=== PATIENT | male | born 1980 | race Caucasian/White ===

== ENCOUNTER 2018-05-15 11:35 | Emergency (ER) | payer MEDICAID ==
[2018-05-15] MEDS ORDERED: AMOX-559 PO (11:51)
--- NOTE | 2018-05-15 12:06 | ER Report ---
History and Physical Time Seen By MD: 12:06 Hx. of Stated Complaint: "I have cancer and no one will help." Per pt, dx'd with AML 2016, now relapsed, can't get an appt at [facility] for another 3 weeks. C/o sore throat, hemorrhoid. HPI/ROS This is a 37-year-old diabetic male who presented to the cancer center stating he needed help for his diagnosed AML. The patient was diagnosed with AML initially in 2015, and underwent chemotherapy treatment. He was lost to follow- up. In April 2018 he had multiple teeth pulled by a local dentist in [place]. After having his teeth pulled he became ill and sought care from his primary care physician. He was noted to be pancytopenic, and at that time admitted 2 to [facility] for further diagnosis and treatment. He had another biopsy performed at [facility] which showed that the AML had returned. He left [facility] AMA prior to getting his treatment. The past 3 weeks he has been feeling more progressively ill. He currently complains of enlarged tonsils and a painful rash that has been worsening in his groin. He complains of fever and chills intermittently for the past 2-3 days. He denies chest pain, shortness of breath, abdominal pain, nausea vomiting or diarrhea. He denies headaches. He currently takes insulin only for his diabetes. Was diagnosed with diabetes in 2016 as well. Remainder of the 14 system rev: Yes Allergies: Coded Allergies: No Known Drug Allergies (Unverified , 05/15/18) Home Meds Reported Medications Amoxicillin/Pot Clav 875-125 Mg Tab (AUGMENTIN 875-125 TABLET) 1 Each Tablet, 1 TAB PO Q12H, TAB 05/15/18 Reviewed Nurses Notes: Yes Old Medical Records Reviewed: Yes Smoking Status: Current: Every Day Smoker Hx Substance Use Disorder: No Hx Alcohol Use: No Constitutional Vital Sign - Last 24 Hours 05/15/18 05/15/18 05/15/18 05/15/18 11:35 11:44 11:47 11:50 Temp 97.8 Pulse ??? 137 133 Resp 16 26 B/P (MAP) 143/100 (114) 143/100 Pulse Ox 97 97 O2 Delivery Room Air 11/13/18 11/13/18 11/13/18 11/13/18 12:05 12:20 12:35 12:48 Pulse 131 121 129 Resp 25 16 17 B/P (MAP) 134/85 (101) Pulse Ox 95 97 97 05/15/18 05/15/18 05/15/18 05/15/18 12:50 13:00 13:05 13:20 Pulse 123 112 106 Resp 22 20 14 B/P (MAP) 129/85 (100) Pulse Ox 97 94 90 05/15/18 05/15/18 05/15/18 05/15/18 13:25 13:30 13:40 13:55 Temp 100.9 Pulse 109 104 95 Resp 19 9 20 B/P (MAP) 140/80 (100) Pulse Ox 95 91 89 05/15/18 05/15/18 05/15/18 05/15/18 14:00 14:05 14:20 14:35 Pulse 113 113 97 Resp 22 12 10 B/P (MAP) 137/91 (106) Pulse Ox 93 91 91 05/15/18 14:50 Resp 24 Physical Exam General Appearance: The patient is alert, has no immediate need for airway protection and no current signs of toxicity. Eyes: Pupils equal and round no injection. Mouth: Mucous membranes are dry, no rash. Tonsils are enlarged without exudate. Respiratory: Chest is non tender, lungs are clear to auscultation. Cardiac: tachycardic, regular rhythm Gastrointestinal: Abdomen is soft and non tender, no masses, bowel sounds normal. Musculoskeletal: No spinal TTP Neck: Neck is supple and non tender. Extremities have full range of motion and are non tender. Skin: Painful, erythematous, ulcerative rash in the perineum DIFFERENTIAL DIAGNOSIS: After history and physical exam differential diagnosis was considered for sepsis, necrotizing fasciitis, neutropenia, return of AML. Medical Decision Making Data Points Result Diagram: 05/15/18 1217 05/15/18 1217 Laboratory Hematology Test 05/15/18 00:00 05/15/18 12:17 05/15/18 12:50 05/15/18 14:18 Venous Blood pH 7.50 (7.31-7.41) Red Blood Count 2.84 M/uL (4.00-5.60) Mean Corpuscular Volume 92.4 fL (80.0-96.0) Mean Corpuscular Hemoglobin 32.7 pg (26.0-33.0) Mean Corpuscular Hemoglobin Concent 35.4 g/dL (32.0-36.0) Red Cell Distribution Width 16.7 % (11.5-14.5) Mean Platelet Volume 7.7 fL (7.2-11.1) Neutrophils (%) (Auto) % (39.4-72.5) Lymphocytes (%) (Auto) % (17.6-49.6) Monocytes (%) (Auto) % (4.1-12.4) Eosinophils (%) (Auto) % (0.4-6.7) Basophils (%) (Auto) % (0.3-1.4) Nucleated RBC Relative Count (auto) /100WBC Neutrophils # (Auto) K/uL (2.0-7.4) Lymphocytes # (Auto) K/uL (1.3-3.6) Monocytes # (Auto) K/uL (0.3-1.0) Eosinophils # (Auto) K/uL (0.0-0.5) Basophils # (Auto) K/uL (0.0-0.1) Nucleated RBC Absolute Count (auto) K/uL Neutrophils % (Manual) 8 % (39.4-72.5) Lymphocytes % (Manual) 66 % (17.6-49.6) Atypical Lymphocytes % 22 % Monocytes % (Manual) 4 % (4.1-12.4) Eosinophils % (Manual) 0 % (0.4-6.7) Basophils % (Manual) 0 % (0.3-1.4) Peripheral Blood Smear Yes Y/N Prothrombin Time 14.2 seconds (12.0-14.4) Prothromb Time International Ratio 1.09 Activated Partial Thromboplast Time 33 seconds (23-35) Sodium Level 132 mmol/L (137-145) Potassium Level 3.7 mmol/L (3.5-5.0) Chloride Level 98 mmol/L (98-107) Carbon Dioxide Level 21 mmol/L (22-30) Blood Urea Nitrogen 10 mg/dl (9-21) Creatinine 0.50 mg/dl (0.66-1.25) Glomerular Filtration Rate Calc > 60.0 Random Glucose 331 mg/dl (75-110) Lactate 1.3 mmol/L (0.7-2.1) Calcium Level 8.6 mg/dl (8.4-10.2) Total Bilirubin 0.7 mg/dl (0.2-1.3) Aspartate Amino Transf (AST/SGOT) 10 U/L (0-35) Alanine Aminotransferase (ALT/SGPT) 22 U/L (0-56) Alkaline Phosphatase 88 U/L (0-126) Total Protein 7.4 g/dl (6.3-8.2) Albumin 3.4 g/dl (3.5-5.0) Group A Streptococcus Screen Negative (NEGATIVE) Urine Color Yellow Urine Clarity Clear Urine pH 6.0 pH (4.8-9.5) Urine Specific [place] 1.023 Urine Protein Negative mg/dL (NEGATIVE) Urine Glucose (UA) 500 mg/dL (NEGATIVE) Urine Ketones 80 mg/dL (NEGATIVE) Urine Blood Negative (NEGATIVE) Urine Nitrite Negative (NEGATIVE) Urine Bilirubin Negative (NEGATIVE) Urine Urobilinogen Negative mg/dL (0.2-1.9) Urine Leukocyte Esterase Negative (NEGATIVE) Urine RBC <1 /HPF (0-2/HPF) Urine WBC 1 /HPF (0-5/HPF) Urine Squamous Epithelial Cells None /LPF (NONE-FEW) Urine Bacteria Negative /HPF (NONE-FEW) Urine Mucus Few /HPF (NONE-FEW) Test 05/15/18 15:17 Whole Blood Glucose 282 mg/DL (75-110) Chemistry Test 05/15/18 00:00 05/15/18 12:17 05/15/18 12:50 05/15/18 14:18 Venous Blood pH 7.50 (7.31-7.41) White Blood Count 0.9 k/uL (4.5-11.0) Red Blood Count 2.84 M/uL (4.00-5.60) Hemoglobin 9.3 g/dL (14.0-18.0) Hematocrit 26.2 % (42.0-52.0) Mean Corpuscular Volume 92.4 fL (80.0-96.0) Mean Corpuscular Hemoglobin 32.7 pg (26.0-33.0) Mean Corpuscular Hemoglobin Concent 35.4 g/dL (32.0-36.0) Red Cell Distribution Width 16.7 % (11.5-14.5) Platelet Count 46 K/uL (150-450) Mean Platelet Volume 7.7 fL (7.2-11.1) Neutrophils (%) (Auto) % (39.4-72.5) Lymphocytes (%) (Auto) % (17.6-49.6) Monocytes (%) (Auto) % (4.1-12.4) Eosinophils (%) (Auto) % (0.4-6.7) Basophils (%) (Auto) % (0.3-1.4) Nucleated RBC Relative Count (auto) /100WBC Neutrophils # (Auto) K/uL (2.0-7.4) Lymphocytes # (Auto) K/uL (1.3-3.6) Monocytes # (Auto) K/uL (0.3-1.0) Eosinophils # (Auto) K/uL (0.0-0.5) Basophils # (Auto) K/uL (0.0-0.1) Nucleated RBC Absolute Count (auto) K/uL Neutrophils % (Manual) 8 % (39.4-72.5) Lymphocytes % (Manual) 66 % (17.6-49.6) Atypical Lymphocytes % 22 % Monocytes % (Manual) 4 % (4.1-12.4) Eosinophils % (Manual) 0 % (0.4-6.7) Basophils % (Manual) 0 % (0.3-1.4) Peripheral Blood Smear Yes Y/N Prothrombin Time 14.2 seconds (12.0-14.4) Prothromb Time International Ratio 1.09 Activated Partial Thromboplast Time 33 seconds (23-35) Glomerular Filtration Rate Calc > 60.0 Lactate 1.3 mmol/L (0.7-2.1) Calcium Level 8.6 mg/dl (8.4-10.2) Total Bilirubin 0.7 mg/dl (0.2-1.3) Aspartate Amino Transf (AST/SGOT) 10 U/L (0-35) Alanine Aminotransferase (ALT/SGPT) 22 U/L (0-56) Alkaline Phosphatase 88 U/L (0-126) Total Protein 7.4 g/dl (6.3-8.2) Albumin 3.4 g/dl (3.5-5.0) Group A Streptococcus Screen Negative (NEGATIVE) Urine Color Yellow Urine Clarity Clear Urine pH 6.0 pH (4.8-9.5) Urine Specific [place] 1.023 Urine Protein Negative mg/dL (NEGATIVE) Urine Glucose (UA) 500 mg/dL (NEGATIVE) Urine Ketones 80 mg/dL (NEGATIVE) Urine Blood Negative (NEGATIVE) Urine Nitrite Negative (NEGATIVE) Urine Bilirubin Negative (NEGATIVE) Urine Urobilinogen Negative mg/dL (0.2-1.9) Urine Leukocyte Esterase Negative (NEGATIVE) Urine RBC <1 /HPF (0-2/HPF) Urine WBC 1 /HPF (0-5/HPF) Urine Squamous Epithelial Cells None /LPF (NONE-FEW) Urine Bacteria Negative /HPF (NONE-FEW) Urine Mucus Few /HPF (NONE-FEW) Test 05/15/18 15:17 Whole Blood Glucose 282 mg/DL (75-110) Coagulation Test 05/15/18 12:17 Prothrombin Time 14.2 seconds Prothromb Time International Ratio 1.09 Activated Partial Thromboplast Time 33 seconds Urinalysis Test 05/15/18 14:18 Urine Color Yellow Urine Clarity Clear Urine pH 6.0 pH (4.8-9.5) Urine Specific [place] 1.023 Urine Protein Negative mg/dL (NEGATIVE) Urine Glucose (UA) 500 mg/dL (NEGATIVE) Urine Ketones 80 mg/dL (NEGATIVE) Urine Blood Negative (NEGATIVE) Urine Nitrite Negative (NEGATIVE) Urine Bilirubin Negative (NEGATIVE) Urine Urobilinogen Negative mg/dL (0.2-1.9) Urine Leukocyte Esterase Negative (NEGATIVE) Urine RBC <1 /HPF (0-2/HPF) Urine WBC 1 /HPF (0-5/HPF) Urine Squamous Epithelial Cells None /LPF (NONE-FEW) Urine Bacteria Negative /HPF (NONE-FEW) Urine Mucus Few /HPF (NONE-FEW) ED Course/Re-evaluation ED Course 37-year-old male presents to the emergency department with sepsis likely from a rash he has in his groin. Also with pancytopenia and neutropenia likely from return of his AML. Blood and urine cultures are pending. He has been given vancomycin and cefepime. He has had 3 L of normal saline. He is tachycardic but not hypotensive. It was normal. A CT scan of the pelvis is pending to make sure the infection in his groin is not a deep space infection. Clinically while it is painful, it is not consistent with a necrotizing fasciitis. I spoke with the patient at length about the severity of his illness. He does have a friend at the bedside. He is currently stable. I considered central line access, but given his neutropenia and thrombocytopenia I think the risks of central line placement in the emergency department outweighs the benefits. I spoke with Dr. Gunn, oncologist at [facility]. I also spoke with the water operator at [facility] the patient will be transferred to the ICU for further care both for sepsis and for his relapsing AML. Decision to Disposition Date: May 15, 2018 Decision to Disposition Time: 16:07 Depart Departure Latest Vital Signs Vital Signs Date Time Temp Pulse Resp B/P (MAP) Pulse Ox O2 Delivery O2 Flow Rate FiO2 05/15/18 14:50 24 05/15/18 14:35 97 91 05/15/18 14:00 137/91 (106) 05/15/18 13:25 100.9 05/15/18 11:47 Room Air Impression: Primary Impression: Sepsis Additional Impressions: Pancytopenia AML (acute myeloid leukemia) in relapse Condition: Improved Disposition: XFER TO [facility] Problem Qualifiers Primary Impression: Sepsis Sepsis type: sepsis due to unspecified organism Qualified Codes: A41.9 - Sepsis, unspecified organism KANDACE MICHELLE MD May 15, 2018 12:06
[2018-05-15] MEDS ORDERED: NS(*) 0.9% 1000 ML BAG 1,000 ML IV ONE ×2 (12:10→16:15)
--- NOTE | 2018-05-15 12:35 | EKG ---
FACILITY: [facility] - [place] PATIENT NAME: SWATHI HARLEY : [id number] MR: [id number] V: [id number] EXAM DATE: ORDERING PHYSICIAN: KANDACE MICHELLE TECHNOLOGIST: Test Reason : tachycardia Blood Pressure : / mmHG Vent. Rate : 126 BPM Atrial Rate : 126 BPM P-R Int : 132 ms QRS Dur : 088 ms QT Int : 336 ms P-R-T Axes : 025 -15 028 degrees QTc Int : 486 ms Sinus tachycardia Otherwise normal ECG No previous ECGs available Confirmed by MARVA LOMBARDI ([id number]) on 05/15/2018 4:31:25 PM Referred By: Confirmed By:MARVA LOMBARDI
[2018-05-15 12:51] LABS: INR 1.09
[2018-05-15] MEDS ORDERED: VANCOMYCIN 1 GM ADDVIAL 1 GM in NS(*) 0.9% 250 ML ADDVAN BAG 250 ML IVPB ONE (13:00)
[2018-05-15] MEDS ORDERED: CEFEPIME HCL 2 GM VIAL IVP ONE (13:00)
[2018-05-15 13:05] LABS: PLATELET COUNT, AUTOMATED 46 K/uL (150-450)
--- NOTE | 2018-05-15 13:23 | RADIOLOGY IMAGING REPORT ---
FACILITY: [facility] - [place], [place] PATIENT NAME: Saeed Barney : 1980 MR: [id number] V: [id number] EXAM DATE: ORDERING PHYSICIAN: KANDACE MICHELLE TECHNOLOGIST: Location: [facility] [place] Patient: Saeed Barney : 1980 Visit/Account:[id number] Date of Sevice: 05/15/2018 CHEST SINGLE AP Additional pertinent History: Sepsis. COMPARISON STUDIES: none FINDINGS: Support lines and catheters: EKG wire leads Lungs and Pleura: Lung lopez well expanded with no infiltrates or consolidations. No parenchymal ma ss lesions are seen. There are no effusions Heart and vasculature: Negative. Rebeka and Mediastinum: Negative. Bones and Chest wall: Negative. Upper Abdomen: Negative. IMPRESSION: 1. Negative chest Report Dictated By: Michael Tuttle MD at 05/15/2018 1:18 PM Report E-Signed By: Michael Tuttle MD at 05/15/2018 1:19 PM WSN:[email or web address]
[2018-05-15] MEDS ORDERED: IOPAMIDOL 76% 75 ML INFUS BTL 75 ML ONE (14:36)
[2018-05-15] MEDS ORDERED: ACETAMINOPHEN 500 MG TAB ONE (15:44)
[2018-05-15 16:00] VITALS: BP 123/71
[2018-05-15] MEDS ORDERED: ACETAMINOPHEN 500 MG TAB PO ONE (16:15)
--- NOTE | 2018-05-15 16:15 | RADIOLOGY IMAGING REPORT ---
FACILITY: [facility] - [place] PATIENT NAME: Saeed Barney : 1980 MR: [id number] V: [id number] EXAM DATE: ORDERING PHYSICIAN: KANDACE MICHELLE TECHNOLOGIST: Location: [facility] - [place] Patient: Saeed Barney : 1980 Visit/Account:[id number] Date of Sevice: 05/15/2018 EXAMINATION: CT pelvis with IV contrast HISTORY: Worrisome for Gloria's gangrene. COMPARISON: None. TECHNIQUE: Spiral scan was obtained through the pelvis during injection of nonionic iodinated intra venous contrast. Sagittal and coronal reformatted images are also submitted. CONTRAST: 75 mL of IV Isovue-370 One of the following dose optimization techniques was utilized in the performance of this exam: Autom ated exposure control; adjustment of the mA and/or kV according to the patient's size; or use of an i terative reconstruction technique. Specific details can be referenced in the facility's radiology C T exam operational policy. FINDINGS: Pelvic structures: Negative. Bowel: The visualized bowel is normal caliber without obvious focal wall thickening. The appendix is normal. Peritoneum / retroperitoneum / mesenteries: Negative. Vessels: Negative. Musculoskeletal / Body wall: Slight stranding in the subcutaneous soft tissues in the perineal region . No gas or abnormal fluid collection is identified within the soft tissues. There is mild fat stra nding along multiple enlarged left inguinal lymph nodes. Lymph node assessment: There are multiple enlarged left inguinal left external iliac chain lymph node s, the largest measuring 2 cm in short axis. IMPRESSION: There is slight stranding in the subcutaneous fat the perineal region suggesting possible mild cellul itis. No gas or abnormal fluid collections are identified within the soft tissues. There are multiple enlarged left inguinal and left external iliac chain lymph nodes with surrounding fat stranding. Report Dictated By: Gordon Cifuentes MD at 05/15/2018 4:01 PM Report E-Signed By: Gordon Cifuentes MD at 05/15/2018 4:11 PM WSN:[email or web address]
== END 2018-05-15 17:00 | disposition short-term general hospital (02) ==
LOC: ER 12:13
DX: A41.9 Sepsis, unspecified organism (principal); D61.818 Other pancytopenia; C92.02 Acute myeloblastic leukemia, in relapse
CPT/HCPCS: 36416; 71045; 72193; 81001; 82800; 82948; 83605; 85025; 85610; 85730; 87040; 87081; 87088; 87880; 93005; 96361; 96365; 96375; 99285; J0692; J3370; J7030; J7050; Q9967; 82040; 82247; 82310; 82374; 82435; 82565; 82947; 84075; 84132; 84155; 84295; 84450; 84460; 84520

== ENCOUNTER → 2018-05-15 | Outpatient (CLI) | payer MEDICAID ==
[~2018-05-15] MED LIST: AMOX-559 PO
== END ==
LOC: AMB 16:34
PROVIDERS: ATTEND Nurse Practitioner
DX: R50.9 Fever, unspecified (principal); A41.9 Sepsis, unspecified organism
CPT/HCPCS: A0425; A0426